=== PATIENT | female | born 1955 | race Caucasian/White ===

== ENCOUNTER → 2016-10-23 | Outpatient (CLI) | payer BC, OTHER ==
[~2016-10-23] MED LIST: CALC1CHW2 PO; CLOB-65 EXT; PARO1TAB27 PO; TAMO20TA47 PO; ZCR40 PO; tylenol sinus PO; vitamin d PO
== END | disposition home or self-care (01) ==
LOC: C.LAB 14:33
PROVIDERS: ATTEND Family Medicine
DX: E78.00 Pure hypercholesterolemia, unspecified (principal); M81.0 Age-related osteoporosis without current pathological fracture

== ENCOUNTER → 2017-04-30 | Outpatient (CLI) | payer BC ==
--- NOTE | 2017-04-30 15:57 | MAMMOGRAPHY REPORT ---
UNILATERAL RIGHT DIGITAL SCREENING MAMMOGRAM TOMOSYNTHESIS WITH CAD: 04/30/2017 CLINICAL HISTORY: Asymptomatic. Personal history of breast cancer. TECHNIQUE: Breast tomosynthesis in addition to standard 2D mammography was performed. Current study was also evaluated with a Computer Aided Detection (CAD) system. Right CC and MLO 2-D and tomosynthe sis images were obtained. COMPARISON: Comparison is made to exams dated: 12/30/2015 mammogram, 04/30/2014 mammogram, 04/23/2014 ma mmogram, 10/19/2013 mammogram, 10/12/2013 mammogram, and 06/25/2010 mammogram - [facility]. BREAST COMPOSITION: There are scattered areas of fibroglandular density in the right breast. FINDINGS: There are no suspicious masses, calcifications, or areas of architectural distortion noted within the right breast. There has been no significant interval change compared to prior exams. Th ere are stable postsurgical changes in the right upper outer quadrant status post lumpectomy. A line ar scar marker denotes a scar on the right upper outer breast. Surgical clips are also noted within the right axillary region. A biopsy marker clip is seen within the right lower inner quadrant. Scat tered benign-appearing calcifications are again noted. Status post left mastectomy. IMPRESSION: ACR BI-RADS CATEGORY 2: BENIGN There is no mammographic evidence of malignancy in the right breast. A 1 year screening mammogram is recommended. The patient will receive written notification of the results. Approximately 10% of breast cancers are not detected with mammography. A negative mammographic report should not delay biopsy if a clinically suggestive mass is present. Lindsay Bosch M.D. ah/:04/30/2017 13:24:52 Emergency Veterinarian: Felicity BRUMFIELD(Chuyita)(M), [facility] letter sent: Normal 1/2 BI-RADS Code: ACR BI-RADS Category 2: Benign
== END | disposition home or self-care (01) ==
LOC: C.MAMM 11:18
PROVIDERS: ATTEND Internal Medicine Hematology & Oncology
DX: Z12.31 Encounter for screening mammogram for malignant neoplasm of breast (principal); Z85.3 Personal history of malignant neoplasm of breast

== ENCOUNTER → 2017-05-31 | Outpatient (CLI) | payer BC ==
--- NOTE | 2017-05-31 14:37 | DIAGNOSTIC IMAGING REPORT ---
RIGHT VENOUS DOPP LOWER EXT UNILAT CLINICAL HISTORY: M79.606 Acute leg pain Right pain. Edema. TECHNIQUE: Venous Doppler COMPARISON STUDY: None FINDINGS: Normal venous Doppler. 6 x 2 cm slightly complex popliteal cyst. IMPRESSION: 1. No evidence for deep venous thrombosis. 2. 6 x 2 cm popliteal cyst The above report was generated using voice recognition software. It may contain grammatical, syntax or spelling errors. Electronically signed by: Everett Dubois M.D. 05/31/2017 2:36 PM Dictated Date/Time: 05/31/2017 2:35 PM
--- NOTE | 2017-05-31 14:58 | DIAGNOSTIC IMAGING REPORT ---
RIGHT HIP UNILATERAL 2 VIEWS CLINICAL HISTORY: M79.671 Foot pain, right Right pain COMPARISON: None. DISCUSSION: The bones and joint spaces appear intact. There is no evidence of fracture, dislocation or bony disease. There is no evidence for soft tissue swelling. IMPRESSION: Negative study. The above report was generated using voice recognition software. It may contain grammatical, syntax or spelling errors. Electronically signed by: vEerett Dubois M.D. 05/31/2017 2:57 PM Dictated Date/Time: 05/31/2017 2:57 PM
--- NOTE | 2017-05-31 15:15 | DIAGNOSTIC IMAGING REPORT ---
RIGHT FOOT MIN 3 VIEWS ROUTINE CLINICAL HISTORY: 61 years-old Female presenting with right foot pain for 1 month, no known injury or trauma. TECHNIQUE: Frontal, oblique, and lateral views of the right foot were obtained. COMPARISON: None. FINDINGS: Minimal osteophytosis is noted along the lateral aspect of the head of the first metatarsal indicating mild degenerative change of the first metatarsophalangeal joint. No acute fracture or subluxation. Os peroneum and os naviculare noted. Calcification noted that the proximal plantar fascia without significant inferior calcaneal osteophyte. Regional soft tissues grossly normal. IMPRESSION: 1. No acute osseous injury of the right foot. 2. Mild degenerative change of the first metatarsophalangeal joint. 3. Calcification along the course of the plantar fascia could indicate chronic changes of plantar fasciitis. Correlate for symptoms. Electronically signed by: Jourdan Millard M.D. 05/31/2017 3:14 PM Dictated Date/Time: 05/31/2017 2:59 PM
== END | disposition home or self-care (01) ==
LOC: C.ULTRBC 13:48
PROVIDERS: ATTEND Physician Assistant Medical
DX: M79.604 Pain in right leg (principal); M25.551 Pain in right hip; M25.871 Other specified joint disorders, right ankle and foot; M71.21 Synovial cyst of popliteal space [Baker], right knee

== ENCOUNTER → 2017-11-02 | Outpatient (CLI) | payer OTHER ==
[~2017-11-02] MED LIST changes: -TAMO20TA47 PO; +TAMO20TA9 PO
--- NOTE | 2017-11-02 10:54 | DIAGNOSTIC IMAGING REPORT ---
L-SPINE MIN 4 VIEWS ROUTINE CLINICAL HISTORY: Low back pain. COMPARISON: Lumbar spine radiographs October 01, 2015. FINDINGS: 6 mm anterolisthesis of L4 and L5 is unchanged since exam of October 01, 2015. There is an old moderate L1 compression fracture. No acute fracture is identified. There is severe lower lumbar spine facet arthrosis with mild to moderate multilevel degenerative disc disease. IMPRESSION: 1. No acute lumbar spine fracture. 2. Old moderate L1 compression fracture. 3. Severe multilevel facet arthrosis and mild to moderate multilevel degenerative disc disease. 4. No change in grade I anterolisthesis of L4 and L5. Electronically signed by: Nicolás Cee M.D. 11/02/2017 10:53 AM Dictated Date/Time: 11/02/2017 10:51 AM
== END | disposition home or self-care (01) ==
LOC: C.RADBC 10:27
PROVIDERS: ATTEND Nurse Practitioner Adult Health
DX: M47.816 Spondylosis without myelopathy or radiculopathy, lumbar region (principal); M51.36 Other intervertebral disc degeneration, lumbar region; Z87.81 Personal history of (healed) traumatic fracture

== ENCOUNTER → 2017-11-29 | Outpatient (CLI) | payer OTHER | END | disposition home or self-care (01) | LOC: C.MAMM 08:52 | PROVIDERS: ATTEND Nurse Practitioner Adult Health | DX: M81.0 Age-related osteoporosis without current pathological fracture (principal); M85.88 Other specified disorders of bone density and structure, other site; M85.851 Other specified disorders of bone density and structure, right thigh; M85.852 Other specified disorders of bone density and structure, left thigh ==

== ENCOUNTER → 2017-12-03 | Outpatient (CLI) | payer OTHER ==
--- NOTE | 2017-12-03 10:07 | DIAGNOSTIC IMAGING REPORT ---
LUMBAR SPINE COMBINATION CLINICAL HISTORY: 62 years-old Female presenting with M79.606 Acute leg painM54.5 Low back painR20.0 Numbness of right, low back pain radiating into the right buttock and down the right leg to the ankle, history of breast cancer. TECHNIQUE: Multisequence, multiplanar MR imaging of the lumbar spine was performed before and after the administration of intravenous contrast. IV contrast: 6 mL of Gadavist. COMPARISON: Lumbar spine radiograph from 11/02/2017. FINDINGS: Localizer images: Uterus surgically absent. Normal lumbar lordosis. Anterior vertebral body height loss of L1 with a prominent central superior endplate depression. No significant bony edema or enhancement of this vertebral body level, suggesting a chronic compression fracture. The remaining vertebral bodies demonstrate normal bone marrow signal intensity. 4 mm of grade 1 anterolisthesis of L4 on L5. The remaining vertebral bodies demonstrate normal alignment. Intervertebral disc desiccation noted diffusely though no significant height loss is evident. Multilevel degenerative changes further detailed below: T12-L1: Facet arthropathy on the right results in moderate right neural foraminal narrowing. No spinal canal narrowing. L1-2: Mild disc bulge with left facet arthropathy. No significant spinal canal narrowing. Mild right and moderate left neural foraminal narrowing. L2-3: Mild disc bulge results in mild effacement of the anterior thecal sac. Moderate to severe right and moderate left neural foraminal narrowing. Mass effect on the exiting L2 nerve roots suspected. L3-4: Mild disc bulge without significant spinal canal narrowing. Mild right and moderate left neural foraminal narrowing. Abutment of the exiting left L3 nerve root. L4-5: Facet arthropathy and ligamentum flavum thickening efface the posterior lateral aspect of the thecal sac. Mild right neural foraminal narrowing. L5-S1: Minimal disc bulge and left greater than right facet arthropathy. Moderate bilateral neural foraminal narrowing. 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 Spinal cord ends in good position at L1. Cauda equina normal in morphology. Paraspinal soft tissues within normal limits. No abnormal enhancement of the spinal cord or cauda equina on postcontrast imaging. Facet arthropathy demonstrates significant enhancement at L5-S1. IMPRESSION: 1. Chronic compression fracture at L1. 2. Multilevel degenerative changes with disc bulges and facet arthropathy. No significant spinal canal narrowing. Multilevel neural foraminal narrowing most severe at L2-3 with mass effect on the exiting L2 nerve root suspected. 3. Additional degenerative changes as above. Electronically signed by: Jourdan Millard M.D. 12/03/2017 10:06 AM Dictated Date/Time: 12/03/2017 9:54 AM
== END | disposition home or self-care (01) ==
LOC: C.MRI 08:26
PROVIDERS: ATTEND Physician Assistant Medical
DX: M54.5 Low back pain (principal); M47.819 Spondylosis without myelopathy or radiculopathy, site unspecified; M48.061 Spinal stenosis, lumbar region without neurogenic claudication; R20.0 Anesthesia of skin

== ENCOUNTER 2018-03-02 08:12 | Inpatient (IN) | payer OTHER ==
[2018-02-15 11:15] VITALS: BMI 24.0
--- NOTE | 2018-02-15 11:52 | PAT Medication Instructions ---
Service Date February 15, 2018. Current Home Medication List Calcium Carbonate-Vitamin D (Oscal 500/200 D-3), 1 TAB PO BID Cholecalciferol (Vitamin D3), 1 CAP PO QAM Doxycycline Monohydrate (Monodox), 100 MG PO BID Fluticasone Propionate (Nasal) (Flonase Allergy Relief), 2 SPRAYS INTNAS QAM Ibuprofen Tab (Advil), 400 MG PO PRN Multivitamin (Multivitamin), 1 TAB PO QAM Simvastatin (Simvastatin), 1 TAB PO QAM Tamoxifen (Nolvadex), 20 MG PO QAM Medication Instructions For Your Scheduled Surgery -Continue as directed: Doxycycline Monohydrate (Monodox), 100 MG PO BID -Check with your surgeon for instructions for: Ibuprofen Tab (Advil), 400 MG PO PRN - Hold the following medications the morning of surgery: Calcium Carbonate-Vitamin D (Oscal 500/200 D-3), 1 TAB PO BID Cholecalciferol (Vitamin D3), 1 CAP PO QAM Multivitamin (Multivitamin), 1 TAB PO QAM - Take the following medications the morning of surgery with a sip of water: Fluticasone Propionate (Nasal) (Flonase Allergy Relief), 2 SPRAYS INTNAS QAM Simvastatin (Simvastatin), 1 TAB PO QAM Tamoxifen (Nolvadex), 20 MG PO QAM - Take the following medications as scheduled the night before surgery: Calcium Carbonate-Vitamin D (Oscal 500/200 D-3), 1 TAB PO BID If you have any questions please call us at [phone] or [phone] or [phone]
[2018-02-15 12:18] LABS: BASO % 0.2 %; BASO ABS # 0.01 K/uL (0-0.2); EOS % 2.9 %; EOS ABS # 0.18 K/uL (0-0.5); HEMATOCRIT 37.5 % (37-47); HEMOGLOBIN 12.7 g/dL (12.0-16.0); IG# 0.02 K/uL (0.00-0.02); LYMPH % 25.9 %; LYMPH ABS # 1.59 K/uL (1.2-3.4); MEAN CELL VOLUME 85.6 fL (80-100); MEAN CORPUSCULAR HGB CONC 33.9 g/dl (32-36); MEAN PLATELET VOLUME 10.4 fL (7.4-10.4); MONO % 5.2 %; MONO ABS # 0.32 K/uL (0.11-0.59); NEUT % 65.5 %; NEUT ABS # 4.02 K/uL (1.4-6.5); PLATELET COUNT 234 K/uL (130-400); RED CELL DISTRIBUTION WIDTH CV 12.4 % (11.5-14.5); RED CELL DISTRIBUTION WIDTH SD 39.2 fL (36.4-46.3); WHITE BLOOD COUNT 6.14 K/uL (4.8-10.8)
--- NOTE | 2018-02-15 12:20 | DIAGNOSTIC IMAGING REPORT ---
TWO VIEW CHEST CLINICAL HISTORY: Preoperative examination. FINDINGS: PA and lateral chest radiographs are compared to study dated 08/07/2014 and correlated with chest CT dated 01/27/2016. The cardiomediastinal silhouette is unremarkable. The lungs and pleural spaces are clear. There is no pneumothorax. The skeletal structures are osteopenic. Degenerative change is noted throughout the thoracic spine. A compression deformity is noted in the upper lumbar region. Cholecystectomy clips are identified in the right upper quadrant. Surgical clips are also seen in the left axilla and projecting over the left breast. IMPRESSION: No active disease in the chest. Electronically signed by: Ricky Cornejo M.D. 02/15/2018 12:18 PM Dictated Date/Time: 02/15/2018 12:14 PM
[2018-02-15 12:58] LABS: CALCIUM 9.1 mg/dl (8.5-10.1); CREATININE 0.73 mg/dl (0.60-1.20); POTASSIUM 4.2 mmol/L (3.5-5.1)
[2018-03-02] VITALS (9 sets, daily range): BP systolic 94–160; BP diastolic 60–99; PULSE 61–84; TEMP 36.2–36.4; O2SAT 97–100; Ht 160 cm; Wt 61.7 kg
[~2018-03-02] VITALS: Ht 160 cm; Wt 61.7 kg
[~2018-03-02 08:12] MED LIST changes: +ACETAMINOPHEN 500 MG TAB PO SCH; -CALC1CHW2 PO; +CALC200T PO; +CEFAZOLIN 1000MG IV PUSH 7.5 ML IV SCH; +CHOL2000 PO; -CLOB-65 EXT; +CeleBREX 200 MG CAP PO SCH; +DOXY100C76 PO; +FLUT0.15 INTNAS; +GABAPENTIN 600 MG PO SCH; +IBUP-103 PO; +LACTATED RINGER'S 1000ML 1,000 ML IV SCH; +MULT-506 PO; -PARO1TAB27 PO; -tylenol sinus PO; -vitamin d PO
[2018-03-02] MEDS ORDERED: ONDANSETRON INJ 2 MG/ML 2 ML VIAL IV PRN ×2 (09:00→12:15)
[2018-03-02] MEDS ORDERED: LABETALOL HCL IV 5 MG/ML 20ML IV PRN (09:00)
[2018-03-02] MEDS ORDERED: EpHEDrine SULFATE INJ 50 MG/ML AMP IV PRN (09:00)
[2018-03-02] MEDS ORDERED: ATROPINE SULFATE 0.1 MG/ML 5ML SYR IV PRN (09:00)
[2018-03-02] MEDS ORDERED: MIDAZOLAM HCL 1 MG/ML 2ML VIAL ONE (09:00)
[2018-03-02] MEDS ORDERED: HYDROmorphone INJ 0.5 MG/0.5 ML SYR IV PRN (09:00)
[2018-03-02] MEDS ORDERED: MEPERIDINE HCL 25 MG/ML CARP IV PRN (09:00)
[2018-03-02] MEDS ORDERED: FENTANYL CITRATE INJ 50 MCG/1 ML 2 ML VIAL ONE ×3 (09:01→10:21)
--- NOTE | 2018-03-02 09:14 | History & Physical Bridge Note ---
H&P Re-Evaluation Bridge Note: I have examined the patient, reviewed the History & Physical and in the interval since the performance of the History & Physical I have noted the following changes of clinical significance: No changes noted
--- NOTE | 2018-03-02 09:15 | History and Physical ---
History & Physical Date March 02, 2018. Chief Complaint Back and leg pain History of Present Illness The patient is a 62 year old female with complaints of back and leg pain Past Medical/Surgical History Medical Problems: (1) Breast cancer Additional History Hepatic Disease: No Endocrine Disorder: No Kidney Disease: No Hypertension: No Heart Disease: No Bleeding Tendencies: No Infectious Diseases: No Allergies Coded Allergies: No Known Allergies (Unverified , 03/02/18) Home Medications Scheduled Calcium Carbonate-Vitamin D (Oscal 500/200 D-3), 1 TAB PO BID Cholecalciferol (Vitamin D3), 1 CAP PO QAM Doxycycline Monohydrate (Monodox), 100 MG PO BID Fluticasone Propionate (Nasal) (Flonase Allergy Relief), 2 SPRAYS INTNAS QAM Ibuprofen Tab (Advil), 400 MG PO PRN Multivitamin (Multivitamin), 1 TAB PO QAM Simvastatin (Simvastatin), 1 TAB PO QAM Tamoxifen (Nolvadex), 20 MG PO QAM Physical Examination Skin: warm/dry, no rash Eyes: normal inspection, EOMI, sclerae normal ENT: normal ENT inspection, pharynx normal Head: normocephalic, atraumatic Neck: supple, no adenopathy, trachea midline Respiratory/Chest: lungs clear, normal breath sounds, no respiratory distress Cardiovascular: regular rate, rhythm, no edema, no murmur Abdomen / GI: normal bowel sounds, non tender Back: normal inspection Extremities: normal inspection, normal range of motion Neurologic/Psych: no motor/sensory deficits, alert, normal reflexes, oriented x 3 Diagnosis Lumbar spinal stenosis with spondylolisthesis and neurogenic claudication Plan of Treatment L4-S1 decompression and fusion
[2018-03-02] MEDS ORDERED: BUPIVACAINE 0.5 % 5 MG/1 ML MPF 30ML VIAL ONE (09:24)
[2018-03-02] MEDS ORDERED: BACITRACIN 50000 UNIT VIAL ONE (09:24)
[2018-03-02] MEDS ORDERED: EpINEphrine INJ 1MG/ML AMP 1 MG/ML AMP ONE (09:24)
[2018-03-02] MEDS ORDERED: HYDROmorphone INJ 2 MG/ML SYR/VIAL ONE ×2 (10:16→12:06)
[2018-03-02] MEDS ORDERED: PROPOFOL IV EMULSION 10 MG/ML 20 ML VIAL ONE (12:00)
[2018-03-02] MEDS ORDERED: LIDOCAINE HCL 2% 2 ML VIAL (20MG/ML) ONE (12:00)
[2018-03-02] MEDS ORDERED: DEXAMETHASONE SOD INJ 4 MG/ML VIAL ONE (12:00)
[2018-03-02] MEDS ORDERED: EpHEDrine SULFATE 50MG/5ML SYR ONE (12:00)
[2018-03-02] MEDS ORDERED: ESMOLOL HCL 10 MG/ML 10 ML VIAL ONE ×2 (12:00→12:06)
[2018-03-02] MEDS ORDERED: FLOSEAL HEMOSTATIC MATRIX 10ML TOP ONE (12:04)
[2018-03-02] MEDS ORDERED: SODIUM CHLORIDE 0.9% 1000ML 1,000 ML IV SCH (12:05)
--- NOTE | 2018-03-02 12:05 | [facility] Operative Report ---
Operative Report Operative Date March 02, 2018. Pre-Operative Diagnosis Lumbar spinal stenosis with spondylolisthesis and neurogenic claudication Post-Operative Diagnosis Lumbar spinal stenosis with spondylolisthesis and neurogenic claudication Procedure(s) Performed 1. Lumbar decompression medial facetectomies foraminotomies L3-4 L4-5 L5-S1. #2 posterior spinal fusion L4-5 L5-S1. #3 placement posterior segmental instrumentation L4-5 L5-S1. #4 interbody fusion L5-S1. #5 placement titanium cage 11 x 22 mm L5-S1. #6 placement of locally harvested autograft in the posterior lateral gutters. #7 placement of infuse collagen sponge, with master graft in the posterior lateral gutters and ostially up in the interbody space. Surgeon Dr. Toledo Candle Molder Surgeon(s) Felicity Cantor PA-C Estimated Blood Loss 325 ml Findings Spinal stenosis with spondylolisthesis Specimens None per Surgeon Anesthesia Type General Description of Procedure Patient was met with preoperatively case discussed all questions addressed. After informed consent obtained patient was taken to the operative suite underwent intubation and placed in prone position the Lui table on top of the Elia frame. All bony promises well-padded eyes inspected to ensure no external pressure placed upon. This point lumbar spine was prepped and draped in the normal sterile fashion. Sharp dissection with the assistance of Bovie cautery was performed down to and exposing the lamina and transverse processes of L4-5 and sacral ala bilaterally. From a caudal to cephalad fashion complete laminectomy of L5 L4 partial laminectomy of L3 is performed addressing severe lateral recess and foraminal stenosis. Pedicle screws were then placed in L4- L5 and S1 levels bilaterally with the assistance of fluoroscopy and process rosmery placed. Through a transforaminal approach and right complete discectomy of L5- S1 was performed endplates. Subcortical bleeding bone and a 11 x 22 mm titanium cage with ostium bone graft tapped in position. Rods were then compressed locked in final position bilaterally. The transverse processes L4- L5 sacral ala burred to subcortical bleeding bone. Infuse collagen sponge mass graft and local autograft placed in posterior gutters. 15 round MARA drain inserted. Incision closed with 1 Vicryl fascia 2-0 Vicryl subtends a 4 Monocryl fashion closure Steri-Strips sterile dressing placed. Patient weakened the PACU stable condition. Please note Felicity Galindo present throughout the entire procedure involved in patient positioning complex portions of the surgery and fashion closure. I attest to the content of the Intraoperative Record and any orders documented therein. Any exceptions are noted below.
[2018-03-02] MEDS ORDERED: KETOROLAC TROMETHAMINE 30 MG/ML VIAL ONE (12:06)
[2018-03-02] MEDS ORDERED: ONDANSETRON INJ 2 MG/ML 2 ML VIAL ONE (12:06)
[2018-03-02] MEDS ORDERED: NEOSTIGMINE METHYLSULFATE 1 MG/ML 10ML VIAL ONE (12:06)
[2018-03-02] MEDS ORDERED: GLYCOPYRROLATE INJ 0.2 MG/ML VIAL ONE (12:06)
[2018-03-02] MEDS ORDERED: BISACODYL 10 MG SUPP PR PRN (12:15)
[2018-03-02] MEDS ORDERED: LORAZEPAM INJ 0.5 MG in SYRINGE 0.75 ML IV PRN (12:15)
[2018-03-02] MEDS ORDERED: METOCLOPRAMIDE HCL INJ 5 MG/ML 2 ML VIAL IV PRN (12:15)
[2018-03-02] MEDS ORDERED: PROMETHAZINE HCL INJ 12.5 MG in SODIUM CHLORIDE 0.9% 50ML 50 ML IV PRN (12:15)
[2018-03-02] MEDS ORDERED: DO NOT ADMINISTER PNEUMOCOCCAL VACCINE PRN (12:15)
[2018-03-02] MEDS ORDERED: LORAZEPAM 0.5 MG TAB PO PRN (12:15)
[2018-03-02] MEDS ORDERED: hydrOXYzine HCL 25 MG TAB PO PRN (12:15)
[2018-03-02] MEDS ORDERED: DO NOT ADMINISTER FLU VACCINE PRN (12:15)
[2018-03-02] MEDS ORDERED: ACETAMINOPHEN 500 MG TAB PO PRN (12:15)
[2018-03-02] MEDS ORDERED: NALOXONE HCL 0.4 MG/1 ML VIAL/CARP IV PRN ×2 (12:15)
[2018-03-02] MEDS ORDERED: FAMOTIDINE 20 MG TAB PO PRN (12:15)
[2018-03-02] MEDS ORDERED: MAGNESIUM HYDROXIDE SUSP 30 ML UDC PO PRN (12:15)
[2018-03-02] MEDS ORDERED: ALUMINUM/MAGNESIUM SUSP 30 ML UDC PO PRN (12:15)
[2018-03-02] MEDS ORDERED: ACETAMINOPHEN IV 100 ML IV PRN (12:15)
[2018-03-02] MEDS ORDERED: SOD PHOSPHATE/SOD BIPHOSPHATE ENEMA 132 ML BTL PR PRN (12:15)
[2018-03-02] MEDS ORDERED: HYDROmorphone HCL 0.5MG/ML 50 ML CASSETTE ONE (12:23)
[2018-03-02] MEDS: FENTANYL CITRATE INJ 50 MCG/1 ML 2 ML VIAL IV PRN ×4 (12:25→12:40)
--- NOTE | 2018-03-02 12:34 | DIAGNOSTIC IMAGING REPORT ---
INTRAOPERATIVE RADIOGRAPHS CLINICAL HISTORY: L4 S1 spinal fusion. Fluoroscopy time: 35 seconds. FINDINGS: 2 spot fluoroscopic views of the lumbar spine are presented. There has been discectomy at L5-S1 with laminectomy and posterior fusion from L4 -S1. Interpedicular screws are present at all levels. The orthopedic hardware appears intact. IMPRESSION: Intraoperative images from L4 -S1 spinal fusion as above. Electronically signed by: Ricky Cornejo M.D. 03/02/2018 12:33 PM Dictated Date/Time: 03/02/2018 12:32 PM
--- NOTE | 2018-03-02 13:16 | Anesthesiology Progress Note ---
Anesthesia Post Op Note Date & Time March 02, 2018 at 13:16 Vital Signs Pain Intensity: 4 Vital Signs Past 12 Hours Date Time Temp Pulse Resp B/P (MAP) Pulse Ox O2 Delivery O2 Flow Rate FiO2 03/02/18 13:05 56 16 110/64 100 Nasal Cannula 4 03/02/18 12:55 36.0 65 18 98/61 100 Nasal Cannula 4 03/02/18 12:45 55 16 110/59 100 Nasal Cannula 4 03/02/18 12:35 71 16 120/69 100 Oxymask 10 03/02/18 12:25 75 16 110/83 100 Oxymask 10 03/02/18 12:18 36.2 84 16 131/78 100 Oxymask 10 03/02/18 08:39 36.4 63 20 160/99 100 Room Air Notes Mental Status: alert / awake / arousable, participated in evaluation Pt Amnestic to Procedure: Yes Nausea / Vomiting: adequately controlled Pain: adequately controlled Airway Patency, RR, SpO2: stable & adequate BP & HR: stable & adequate Hydration State: stable & adequate Anesthetic Complications: no major complications apparent
[2018-03-02] MEDS: HYDROmorphone HCL 0.5MG/ML 50 ML CASSETTE IV PRN ×2 (13:23→23:01)
[2018-03-02] MEDS: LACTATED RINGER'S 1000ML 1,000 ML IV SCH ×2 (14:39→18:32)
[2018-03-02] MEDS: CEFAZOLIN IV 1,000 MG in SYRINGE 0 ML IV SCH (18:32)
[2018-03-02] MEDS: DOCUSATE SODIUM/SENNA 50/8.6MG TAB PO SCH (20:43)
[2018-03-03] VITALS (7 sets, daily range): BP systolic 109–120; BP diastolic 62–69; PULSE 68–87; TEMP 36.6–36.9; O2SAT 94–98
[2018-03-03] MEDS: LACTATED RINGER'S 1000ML 1,000 ML IV SCH (01:01)
[2018-03-03] MEDS: CEFAZOLIN IV 1,000 MG in SYRINGE 0 ML IV SCH (01:01)
[2018-03-03] MEDS ORDERED: OXYCODONE HCL IR 5 MG TAB (IMMEDIATE RELEASE) PO PRN (06:00)
[2018-03-03] MEDS ORDERED: DC PCA SCH (06:00)
[2018-03-03] MEDS ORDERED: HYDROmorphone INJ 0.5 MG/0.5 ML SYR IV PRN (06:00)
[2018-03-03 06:37] LABS: BASO % 0.2 %; BASO ABS # 0.01 K/uL (0-0.2); EOS % 1.1 %; EOS ABS # 0.07 K/uL (0-0.5); HEMATOCRIT 27.9 % (37-47); HEMOGLOBIN 9.5 g/dL (12.0-16.0); IG# 0.01 K/uL (0.00-0.02); LYMPH % 17.5 %; LYMPH ABS # 1.15 K/uL (1.2-3.4); MEAN CELL VOLUME 85.6 fL (80-100); MEAN CORPUSCULAR HEMOGLOBIN 29.1 pg (25-34); MEAN CORPUSCULAR HGB CONC 34.1 g/dl (32-36); MEAN PLATELET VOLUME 10.1 fL (7.4-10.4); MONO % 7.8 %; MONO ABS # 0.51 K/uL (0.11-0.59); NEUT % 73.2 %; NEUT ABS # 4.81 K/uL (1.4-6.5); PLATELET COUNT 163 K/uL (130-400); RED CELL DISTRIBUTION WIDTH CV 12.8 % (11.5-14.5); RED CELL DISTRIBUTION WIDTH SD 40.1 fL (36.4-46.3); WHITE BLOOD COUNT 6.56 K/uL (4.8-10.8)
[2018-03-03] MEDS ORDERED: NURSING VERBAL MED ORDER ONE (06:45)
[2018-03-03 06:59] LABS: CREATININE 0.61 mg/dl (0.60-1.20); POTASSIUM 3.9 mmol/L (3.5-5.1)
[2018-03-03] MEDS ORDERED: RXC5 PO (07:41)
--- NOTE | 2018-03-03 07:41 | Discharge Instructions ---
Discharge Instructions Date of Service March 03, 2018. Admission Reason for Admission: Lumbar Spinal Stenosis Discharge Discharge Diagnosis / Problem: lumbar stenosis Discharge Goals Goal(s): Improve function Activity Recommendations Activity Limitations: per Instructions/Follow-up section . Instructions / Follow-Up Instructions / Follow-Up ACTIVITY RECOMMENDATIONS: SELF CARE INSTRUCTIONS AFTER THORACIC/LUMBAR FUSIONS 1. You may walk to your tolerance. It is good exercise for your legs and back. Expect some back and intermittent leg aches and pains. 2. You may perform "counter-top" level activities (make a sandwich, broderick with a project, etc.). 3. No bending or lifting of more than 10 pounds or back twisting of any nature (roll like a log when turning in bed). 4. You may ride in a car for 20-30 minutes at a time. No driving until after your first visit with your doctor. 5. Frequent changes of position and restricting sitting to 30 minutes at a time will help limit the amount of back spasms and stiffness you may experience. 6. You may discontinue the use of ambulatory aids (cane, crutches, etc.) once your strength and confidence allow. 7. You may business account leader the shower and let water strike your incision when you arrive home at least once daily. Do not take a tub bath, sit in a hot tub or go into a swimming pool until after your first recheck in the office. SPECIAL CARE INSTRUCTIONS: VERY IMPORTANT TO READ AND REVIEW A. Your surgical incision has been closed with a cosmetic suture under the skin that will dissolve in about 6 weeks. In 14 days, you can use a pair of clean scissors and cut the suture that is left outside of the skin at the ends of your incision. 1. The small skin tapes can be removed 7 days after surgery if they have not fallen off by that point. 2. You may keep the wound open to air as much as possible to promote healing after post-op day number 5 unless told otherwise by your doctor. 3. If you think the wound looks like it is becoming infected (redness or worsening drainage) and/or you are experiencing fever, chill or worsening back pain and muscle spasms, contact the office so that we may evaluate you as soon as possible. B. Complications are uncommon, but please contact us if you have any signs or symptoms of: 1. wound infection (fever higher than 102.5 degrees F, redness, separation of wound, drainage, or increasing pain from the incision) 2. blood clots in legs (pain, swelling, redness and warmth in legs) 3. urinary tract infection (fever higher than 102.5 degrees F, burning upon urination or increased frequency of urination) 4. nerve problems (inability to walk on your toes or heels, numbness, loss of bowel or bladder control) 5. any other symptoms that concern you C. Please call the office at if you have any concerns or questions about your operation or recovery. D. No smoking! Smoking drastically decreases the chance of a solid fusion. E. Do not take any anti-inflammatory medications (Indocin, Advil, Motrin, Aspirin, Naprosyn, etc.) as these may inhibit the chance of a solid fusion. Tylenol is okay to take for pain. MANAGING PAIN AFTER SPINAL SURGERY 1. Narcotic medication is intended for short-term use and will be provided for surgical pain. Surgical pain usually lasts for a period of 4-6 weeks. Narcotic medication includes Percocet, Vicodin, Darvocet, Tylenol #3 or Lortab. 2. Longer-term pain is more appropriately treated with non-narcotic medication such as Tylenol ES. 3. Muscle spasm is not appropriately treated with narcotics. Muscle relaxers such as Soma, Flexeril or Skelaxin can be used along with Tylenol ES. 4. Remember that we all live with some "aches and pains". This is not unusual or uncommon after an injury or as we get older. a. Back pain is expected and may include muscle spasms for 4 to 6 weeks after surgery. The pain should gradually improve. If the pain worsens for no apparent reason, please contact the office. b. Intermittent leg pain may also be experienced and should not be concerned about unless it worsens for no apparent reason. If so, please contact the office. 5. We will provide appropriate medication within the normal guidelines of their prescribed use. We will also be very cautious and aware of potential abuse and extended duration of patients' medication needs. a. Pain medications are for your comfort and to assist with sleep and rest so that the tissue can heal. They are not provided in order to return to normal activity and should not be used through the day. To do so or worsening pain at night can result from ongoing tissue damage and development of tolerance to the prescribed medicine. 6. Please allow 2-3 days to process refills. Prescriptions will not be mailed but must be picked up at the office. FOLLOW UP VISIT: Keep your scheduled follow-up appointment. Any questions, please call the office at . Current Hospital Diet Patient's current hospital diet: Regular Diet Discharge Diet Recommended Diet: Regular Diet Procedures Procedures Performed: 1. Lumbar decompression medial facetectomies foraminotomies L3-4 L4-5 L5-S1. #2 posterior spinal fusion L4-5 L5-S1. #3 placement posterior segmental instrumentation L4-5 L5-S1. #4 interbody fusion L5-S1. #5 placement titanium cage 11 x 22 mm L5-S1. #6 placement of locally harvested autograft in the posterior lateral gutters. #7 placement of infuse collagen sponge, with master graft in the posterior lateral gutters and ostially up in the interbody space. Pending Studies Studies pending at discharge: no Medical Emergencies . Who to Call and When: Medical Emergencies: If at any time you feel your situation is an emergency, please call 911 immediately. . Non-Emergent Contact Non-Emergency issues call your: Primary Care Provider . "Provider Documentation" section prepared by Oumar Toledo. .
--- NOTE | 2018-03-03 07:47 | Anesthesiology Progress Note ---
Anesthesia Post Op Note Date & Time March 03, 2018 at 07:46 Vital Signs Pain Intensity: 0.0 Vital Signs Past 12 Hours Date Time Temp Pulse Resp B/P (MAP) Pulse Ox O2 Delivery O2 Flow Rate FiO2 03/03/18 03:32 36.7 87 16 109/69 (82) 94 Room Air 03/03/18 00:00 Room Air 03/02/18 22:54 36.4 81 15 94/60 (71) 99 Room Air Notes Mental Status: alert / awake / arousable, participated in evaluation Pt Amnestic to Procedure: Yes Nausea / Vomiting: adequately controlled, improving with treatment Pain: adequately controlled Airway Patency, RR, SpO2: stable & adequate BP & HR: stable & adequate Hydration State: stable & adequate Anesthetic Complications: no major complications apparent
[2018-03-03] MEDS: FLUTICASONE PROPIONATE NA SPR 16 GM BTL NAE SCH (09:00)
[2018-03-03] MEDS: TAMOXIFEN CITRATE 10 MG TAB PO SCH (09:27)
[2018-03-03] MEDS: SIMVASTATIN 40 MG TAB PO SCH (09:28)
[2018-03-03] MEDS ORDERED: KETOROLAC TROMETHAMINE 30 MG/ML VIAL IV STA (11:14)
--- NOTE | 2018-03-03 13:07 | Progress Note ---
Progress Note Date of Service March 03, 2018. Progress Note Patient's back pain is controlled leg symptoms are markedly improved. Vital signs are stable. On exam she is good strength testing appears comfortable. Assessment status post lumbar decompression fusion per plan at this time we will initiate physical therapy advance her bowel regiment anticipate over the next few days.
[2018-03-03] MEDS: KETOROLAC TROMETHAMINE 30 MG/ML VIAL IV PRN (19:19)
[2018-03-03] MEDS: DOCUSATE SODIUM/SENNA 50/8.6MG TAB PO SCH (20:34)
[2018-03-04] MEDS: KETOROLAC TROMETHAMINE 30 MG/ML VIAL IV PRN ×2 (04:26→13:03)
[2018-03-04] MEDS: POLYETHYLENE (MIRALAX) 17 GM PACK PO SCH ×2 (05:41→12:53)
[2018-03-04 05:53] VITALS: BP 131/70; PULSE 83; TEMP 36.9; O2SAT 96
[2018-03-04 08:30] VITALS: O2SAT 96
[2018-03-04] MEDS: SIMVASTATIN 40 MG TAB PO SCH (08:58)
[2018-03-04] MEDS: TAMOXIFEN CITRATE 10 MG TAB PO SCH (08:59)
[2018-03-04] MEDS: FLUTICASONE PROPIONATE NA SPR 16 GM BTL NAE SCH (09:41)
[2018-03-04 10:40] VITALS: BP 131/70; PULSE 83; TEMP 36.9; O2SAT 96
--- NOTE | 2018-03-04 14:28 | Discharge Summary ---
Orthopedic Discharge Summary Admission Date/Reason March 02, 2018 at 09:30 Lumbar Spinal Stenosis. Discharge Date/Disposition March 04, 2018 Home Diagnosis Principal Diagnosis: Lumbar spinal stenosis with spondylolisthesis Admission Physical Exam As per Admitting History & Physical. Hospital Course She underwent lumbar depression fusion tolerated as well as taken the orthopedic floor postoperatively. Postop day #1 she was up and amatory progressed through postop day #2 and was subsequently discharged home. Discharge orders and instructions can be found in the chart for further review. Discharge Instructions Please refer to the electronic Patient Visit Report (Discharge Instructions) for additional information.
== END 2018-03-04 14:38 | disposition home or self-care (01) | DRG 455 ==
LOC: C.ACU 08:12 → C.3E 09:30 → ENRESERV 12:46
PROVIDERS: ADMIT Orthopaedic Surgery Orthopaedic Surgery of the Spine; ATTEND Orthopaedic Surgery Orthopaedic Surgery of the Spine
PROC: 0ST40ZZ Resection of Lumbosacral Disc, Open Approach (ICD-10-PCS; principal; 2018-03-02 10:20)
PROC: 0SG3071 Fusion of Lumbosacral Joint with Autologous Tissue Substitute, Posterior Approach, Posterior Column, Open Approach (ICD-10-PCS; principal; 2018-03-02 10:20)
PROC: 0SG0071 Fusion of Lumbar Vertebral Joint with Autologous Tissue Substitute, Posterior Approach, Posterior Column, Open Approach (ICD-10-PCS; principal; 2018-03-02 10:20)
PROC: 0SG30AJ Fusion of Lumbosacral Joint with Interbody Fusion Device, Posterior Approach, Anterior Column, Open Approach (ICD-10-PCS; principal; 2018-03-02 10:20)
DX: M48.062 Spinal stenosis, lumbar region with neurogenic claudication (principal); M43.16 Spondylolisthesis, lumbar region; Z79.899 Other long term (current) drug therapy